=== PATIENT | female | born 1975 | race Caucasian/White ===

== ENCOUNTER 2017-11-01 20:20 | Inpatient (IN) | payer SELFPAY ==
[~2017-11-01] VITALS: Ht 170.2 cm; Wt 90.7 kg
[~2017-11-01 20:20] MED LIST: Z.1.HYDROCODON-ACE1
--- OUTSIDE RECORDS SUMMARY | 2017-11-01 20:23 | XMS REPORT ---
Author Author [facility] Address Unknown Phone Unavailable Care Team Providers Care Circulation Man Name Role Phone KAMLESH TORREZ Unavailable Unavailable Problems This patient has no known problems. Allergies, Adverse Reactions, Alerts This patient has no known allergies or adverse reactions. Medications This patient has no known medications. Encounters Start Date/Time End Date/Time Encounter Type Admission Type Attending [facility] Care Facility Care Department Encounter ID 2017-12-09 00:00:00 2017-12-09 00:00:00 Outpatient [facility] [id number] 2017-11-04 00:00:00 2017-11-04 00:00:00 Outpatient [facility] [id number] 2017-10-14 00:00:00 2017-10-14 00:00:00 Outpatient [facility] [id number] 2017-10-14 00:00:00 2017-10-14 00:00:00 Outpatient [facility] [id number] 2017-07-22 13:35:12 2017-07-22 13:35:12 Outpatient [facility] [id number] 2017-06-29 00:00:00 2017-06-29 00:00:00 Outpatient [facility] [id number] 2017-04-30 15:04:31 2017-04-30 15:04:31 Outpatient [facility] [id number] 2017-04-30 14:36:00 2017-04-30 14:36:00 Outpatient [facility] [id number] 2017-04-29 12:59:17 2017-04-29 12:59:17 Outpatient [facility] [id number] Results Test Description Test Time Test Comments Text Results Atomic Results Result Comments CHEST [address] [address] Patient Name: GLADYS DOUGLAS MR #: [id number] : 1975 Age/Sex: 41/F Req #: [id number] Adm Physician: Ordered by: KAMLESH TORREZ MD Report #: [id number] Location: Room/Bed: Procedure: [id number] DX/CHEST 2 VIEWS Exam Date: 05/02/17 Exam Time: 2318 REPORT STATUS: Signed EXAM: CHEST 2 VIEWS, PA and lateral DATE: 05/02/2017 10:42 PM Time stamp on exam: 2252 hours INDICATION: Abdominal pain , shortness of breath, chest pain COMPARISON: None FINDINGS: LINES/ TUBES: None LUNGS: No consolidations or edema. PLEURA: No effusions or pneumothorax. HEART AND MEDIASTINUM: Normal size and contour. BONES AND SOFT TISSUES: No acute findings. IMPRESSION: No acute thoracic abnormality. Signed by: Dr. Sam Seymour M.D. on 2016 11:33 PM Dictated By: SAM SEYMOUR MD 32 Transcribed By: MARYJO on 05/02/172332 COPY TO: KAMLESH TORREZ MD
[2017-11-01] MEDS ORDERED: DIATRIZOATE MEGL/DIATRIZOA SOD 30 ML BTL PO ONE (22:56)
[2017-11-01 23:08] LABS: BASOPHILS % 0.3 % (0.0-1.0); EOSINOPHILS # (AUTO) 0.1 (0.0-0.4); EOSINOPHILS % 0.8 % (0.0-6.0); HEMATOCRIT 28.7 % (34.2-44.1); HEMOGLOBIN 8.9 g/dL (12.0-16.0); LYMPHOCYTES # (AUTO) 1.8 (1.0-3.2); LYMPHOCYTES % 13.8 % (18.0-39.1); MEAN CORPUSCULAR HEMOGLOBIN 25.6 pg (28-32); MEAN CORPUSCULAR VOLUME 82.5 fL (81-99); MONOCYTES # (AUTO) 0.8 (0.2-0.8); MONOCYTES % 5.8 % (4.4-11.3); NEUTROPHILS # (AUTO) 10.1 (2.1-6.9); NEUTROPHILS % 78.3 % (38.7-80.0); PLATELET COUNT 400 x10e3/uL (140-360); RED BLOOD COUNT 3.48 x10e6/uL (3.6-5.1); RED CELL DISTRIBUTION WIDTH 15.6 % (11.7-14.4)
[2017-11-01 23:16] LABS: INR 1.76; PROTHROMBIN TIME 19.3 seconds (11.9-14.5)
[2017-11-01 23:17] LABS: PARTIAL THROMBOPLASTIN TIME 48.7 seconds (23.8-35.5)
[2017-11-01 23:26] LABS: ALANINE AMINOTRANSFERASE 8 IU/L (0-55); ALBUMIN 2.1 g/dL (3.5-5.0); ALBUMIN/GLOBULIN RATIO 0.3 (0.8-2.0); ALKALINE PHOSPHATASE 107 IU/L (40-150); AMYLASE 15 U/L (25-125); ANION GAP 13.6 mmol/L (8-16); BLOOD UREA NITROGEN < 5 mg/dL (7-26); CALCIUM 9.2 mg/dL (8.4-10.2); CARBON DIOXIDE 29 mmol/L (22-29); CHLORIDE 93 mmol/L (98-107); CREATINE KINASE 7 IU/L (29-168); CREATININE, SERUM 0.76 mg/dL (0.57-1.11); EST GLOMERULAR FILTRATION RATE > 60 ML/MIN (60-); GLUCOSE 170 mg/dL (74-118); POTASSIUM 3.6 mmol/L (3.5-5.1); SODIUM 132 mmol/L (136-145)
[2017-11-01 23:28] LABS: BUN/CREATININE RATIO 7 (6-25); LIPASE < 4 U/L (8-78)
--- NOTE | 2017-11-02 01:20 | Diagnostic Imaging Report ---
EXAM: CT ABDOMEN AND PELVIS with IV CONTRAST DATE: 11/01/2017 10:29 PM Time stamp on Exam: 0028 hours INDICATION: Abdominal pain, nausea, history of pancreatic pseudoaneurysm coiling COMPARISON: None TECHNIQUE: The abdomen and pelvis were scanned using a multidetector helical scanner. Coronal and sagittal reformations were obtained. Routine protocol performed. IV Contrast: 100 cc Isovue-370 Oral Contrast: Gastrografin CTDIvol has been reviewed. It is below the limits set by the Radiation Protocol Committee (RPC). FINDINGS: LOWER THORAX: No consolidations LIVER: Geographic hypodensities throughout the liver with more prominent irregular hypodensities in the posterior aspect of the right lobe of the liver. BILIARY: The gallbladder has been removed. The common bile duct is mildly prominent at 7 mm. SPLEEN: Splenomegaly up to 18 cm in craniocaudal dimension. There are a few subcentimeter ill-defined hypodensities in the superior anterior and mid posterior aspects. PANCREAS: Diffuse pancreatic atrophy. Scattered pancreatic calcifications and punctate focus of air in the pancreatic duct. ADRENALS: No nodules KIDNEYS: Symmetric perfusion. No enhancing masses. No hydronephrosis. GI TRACT: Thickened gastric wall anteriorly predominantly of the body and the antrum. The small bowel and large bowel are unremarkable. Normal appendix. VESSELS: The main portal and splenic veins are patent. Splenic varices. Coils in the expected location of the gastroduodenal artery. No evidence of an aneurysm. There is a replaced right hepatic artery arising from the superior mesenteric artery. The left hepatic artery is patent. PERITONEUM/RETROPERITONEUM: Within the anterior upper abdomen there is an approximately 8 cm ill-defined, multiloculated fluid collection with punctate foci of air which is invading the anterior wall of the body of the stomach and left lobe of the liver and abuts the anterior abdominal wall. Adjacent inflammatory changes of the overlying subcutaneous fat. Trace free pelvic fluid. LYMPH NODES: No lymphadenopathy REPRODUCTIVE ORGANS: Unremarkable BLADDER: Unremarkable SOFT TISSUES: Mild inflammation of the upper anterior abdomen subcutaneous tissues. Well-circumscribed nonspecific nodules in the partially visualized left breast measuring approximately 1.4 cm each. These could represent intramammary lymph nodes. Focal soft tissue densities in the lower anterior abdomen subcutaneous tissues likely represent injection sites. BONES: No suspicious bone lesions. IMPRESSION: Ill-defined multiloculated fluid collection measuring approximately 8 cm in the anterior upper abdomen containing air is consistent with an abscess with invasion to the anterior stomach wall and left lobe of the liver. Ill-defined hypodensities in the liver, predominantly right posterior lobe are suspicious for spread of infection with a background of geographic hepatic steatosis. Splenomegaly with nonspecific scattered subcentimeter hypodensities, that could be related to infection. Procedural changes of gastroduodenal artery coiling without evidence of aneurysm. Signed by: Dr. Reina Ferrera M.D. on 11/02/2017 1:16 AM
[2017-11-02] MEDS ORDERED: METHADONE PO (02:02)
[2017-11-02] MEDS ORDERED: XARELTO20 MG PO (02:06)
[2017-11-02] MEDS ORDERED: IMITREX25 MG PO (02:06)
[2017-11-02] MEDS ORDERED: ZOLOFT50 MG PO (02:06)
[2017-11-02] MEDS ORDERED: AMBIEN CR12.5 MG PO (02:06)
[2017-11-02] MEDS: PIPER-TAZ 3.375 GM/50 ML BAG IV SCH ×3 (03:04→21:37)
[2017-11-02] MEDS: SODIUM CHLORIDE 0.9% 1000ML 1,000 ML IV SCH ×3 (03:04→17:33)
[2017-11-02] MEDS: MORPHINE SULFATE 2 MG/ML SYR IV PRN ×4 (03:09→21:39)
[2017-11-02] MEDS: METRONIDAZOLE 500MG/NS 100ML IV SCH ×4 (03:45→23:30)
[2017-11-02] MEDS ORDERED: IOPAMIDOL 370 MG/ML 200 ML INFUS..BTL INJ ONE (04:41)
[2017-11-02] MEDS ORDERED: SODIUM CHLORIDE 0.9% 50ML 50 ML ONE (04:41)
[2017-11-02] MEDS: ONDANSETRON HCL INJ 2 MG/ML VIAL IV PRN ×2 (05:29→16:55)
[2017-11-02] MEDS ORDERED: ACETAMINOPHEN 1000 MG/100 ML IV SCH (06:00)
[2017-11-02] MEDS ORDERED: ACETAMINOPHEN 1000 MG/100 ML IV PRN (06:00)
--- NOTE | 2017-11-02 10:14 | Consultation ---
DATE OF CONSULTATION: November 02, 2017 CHIEF COMPLAINT: Abdominal pain. 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 Has developed increase abdominal pain, which exacerbated in the last 2 days to a severe degree with fevers and nausea. No vomiting. No diarrhea. PAST MEDICAL HISTORY: Positive for anxiety disorder. SURGICAL HISTORY: Significant for cholecystectomy and recent embolization to pseudoaneurysm of the pancreas. ALLERGIES: SHE HAS AN ALLERGIC REACTION TO REGLAN. SOCIAL HABITS: No smoking or alcohol abuse. REVIEW OF SYSTEMS: No chest pain, shortness of breath or cough. PHYSICAL EXAMINATION VITALS: Stable. Afebrile. T-max 100. GENERAL: The patient is awake, alert and in moderate discomfort. HEENT: Sclerae anicteric. NECK: Supple. LUNGS: Clear. HEART: Regular rate and rhythm. ABDOMEN: Soft. There is guarding, tenderness and rebound in the epigastric area. EXTREMITIES: Without cyanosis or edema. The patient's white blood cell count is 13, hemoglobin 8.9. Creatinine is 0.7. CT scan showed a large fluid collection in the anterior abdominal region adjacent to the stomach abutting the left lobe of the liver with pockets suggestive of abscess formation. ASSESSMENT: Intra-abdominal abscess. Patient is on blood thinners. PLAN: Consult interventional radiology for percutaneous drainage of the intra-abdominal abscess. Thank you for the consultation. Job#: [id number] [place]
[2017-11-02] MEDS ORDERED: MIDAZOLAM HCL 2 MG/2 ML VIAL ONE (14:28)
[2017-11-02] MEDS ORDERED: FENTANYL CITRATE/PF 100MCG/2 ML INJ ONE (14:29)
[2017-11-02 16:00] VITALS: BP 125/58
[2017-11-02 16:37] VITALS: BP 125/58
[2017-11-02 16:43] VITALS: BP 125/58
[2017-11-02] MEDS ORDERED: ZOLPIDEM TARTRATE PO PRN (18:15)
[2017-11-02] MEDS ORDERED: LEVOTHYROXINE75 MCG PO (18:15)
[2017-11-02 20:00] VITALS: BP 113/54
--- NOTE | 2017-11-02 20:28 | History and Physical ---
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 difficile colitis, history of gastritis. Patient came here with abdominal pain. She was found to have any intra-abdominal abscess. She already underwent drainage of the abscess by inpatient Radiology who drained 200 mL of pus from the abdomen. REVIEW OF SYSTEMS: CARDIOVASCULAR: No chest pain or palpitation. RESPIRATORY: No shortness of breath. No cough. GASTROINTESTINAL: No nausea. No vomiting. She did have abdominal pain which is better. GENITOURINARY: No frequency, no dysuria. ALLERGIES: IS ALLERGIC TO METOCLOPRAMIDE, PROCHLORPERAZINE. SOCIAL HISTORY: She does not drink. PAST MEDICAL HISTORY: Positive for recent pseudoaneurysm with intraluminal coiling of the gastroduodenal artery, history of recent pancreatitis also. PHYSICAL EXAMINATION VITAL SIGNS: Blood pressure 125/58, temperature 98.3. Heart rate 85 per minute. Respiratory rate 20 per minute. Oxygen saturation 99%. On the BMP sodium 132, potassium 3.6, chloride 93. CO2 29. BUN 5, creatinine 0.76. Glucose 170. On the CBC, white blood count 12.9, hemoglobin 8.9, hematocrit 28.7, platelet count 400,000. PT 19.3. INR 1.76. PTT 48.7. AST 18, ALT 8. Total bilirubin 0.4, alkaline phosphatase 107. FINAL IMPRESSION: 1. Intra-abdominal abscess status post drain. 2. Acute anemia. 3. Thrombus in the gastroduodenal artery. PLAN OF TREATMENT: As I said, we are going to continue with 1 Flagyl 500 mg IV q.6 hours. Zosyn 3.375 grams IV piggyback q.6 hours. Zofran 4 mg IV q.4 hours. Tylenol 1000 mg IV q.6 h. as needed. Morphine 4 mg IV q.4 h. as needed. Continue IV fluids at 125 mL an hour. And she was taking also Xarelto [address] Burks has been consulted from the surgical point of view and invasive Radiology has been consulted and Dr. Zuniga for infectious disease. He has been consulted. We are going to repeat a CBC and BMP. We are going to be waiting for abdominal fluid culture. Job#: [id number] [place]
[2017-11-02] MEDS: ZOLPIDEM TARTRATE 10 MG TAB PO PRN (23:10)
[2017-11-03] VITALS: BP 96/53
[2017-11-03] MEDS: SODIUM CHLORIDE 0.9% 1000ML 1,000 ML IV SCH ×4 (03:20→20:38)
[2017-11-03] MEDS: MORPHINE SULFATE 2 MG/ML SYR IV PRN ×5 (03:39→22:36)
[2017-11-03 04:00] VITALS: BP 99/52
[2017-11-03] MEDS: METRONIDAZOLE 500MG/NS 100ML IV SCH ×3 (05:13→17:11)
[2017-11-03] MEDS: PIPER-TAZ 3.375 GM/50 ML BAG IV SCH ×3 (06:30→22:21)
[2017-11-03 06:52] LABS: BASOPHILS % 0.5 % (0.0-1.0); EOSINOPHILS # (AUTO) 0.1 (0.0-0.4); HEMATOCRIT 23.8 % (34.2-44.1); LYMPHOCYTES # (AUTO) 1.2 (1.0-3.2); LYMPHOCYTES % 18.9 % (18.0-39.1); MEAN CORPUSCULAR HGB CONC 31.1 g/dL (31-35); MEAN CORPUSCULAR VOLUME 83.5 fL (81-99); MONOCYTES # (AUTO) 0.5 (0.2-0.8); MONOCYTES % 7.6 % (4.4-11.3); NEUTROPHILS # (AUTO) 4.5 (2.1-6.9); NEUTROPHILS % 69.5 % (38.7-80.0); PLATELET COUNT 248 x10e3/uL (140-360); RED BLOOD COUNT 2.85 x10e6/uL (3.6-5.1); RED CELL DISTRIBUTION WIDTH 15.5 % (11.7-14.4)
[2017-11-03 06:57] LABS: HEMOGLOBIN 7.4 g/dL (12.0-16.0)
[2017-11-03 07:18] LABS: ALBUMIN 1.6 g/dL (3.5-5.0); ALBUMIN/GLOBULIN RATIO 0.3 (0.8-2.0); ALKALINE PHOSPHATASE 98 IU/L (40-150); ANION GAP 10.2 mmol/L (8-16); BLOOD UREA NITROGEN < 5 mg/dL (7-26); CALCIUM 8.3 mg/dL (8.4-10.2); CARBON DIOXIDE 28 mmol/L (22-29); CHLORIDE 102 mmol/L (98-107); CREATININE, SERUM 0.62 mg/dL (0.57-1.11); EST GLOMERULAR FILTRATION RATE > 60 ML/MIN (60-); GLUCOSE 105 mg/dL (74-118); POTASSIUM 3.2 mmol/L (3.5-5.1); SODIUM 137 mmol/L (136-145)
[2017-11-03 07:19] LABS: ALANINE AMINOTRANSFERASE < 6 IU/L (0-55); BUN/CREATININE RATIO 8 (6-25)
[2017-11-03 07:35] VITALS: BP 113/73
[2017-11-03] MEDS: LEVOTHYROXINE SODIUM 75 MCG TAB PO SCH (08:51)
[2017-11-03] MEDS: SERTRALINE HCL 50 MG TAB PO SCH (08:51)
[2017-11-03] MEDS: ONDANSETRON HCL INJ 2 MG/ML VIAL IV PRN ×4 (08:51→22:37)
[2017-11-03] MEDS: RIVAROXABAN 15 MG TABLET PO SCH ×2 (08:51→16:35)
[2017-11-03] MEDS ORDERED: METHADONE PO SCH (09:00)
[2017-11-03] MEDS: METHADONE PO SCH (09:00)
[2017-11-03] MEDS ORDERED: RIVAROXABAN 20 MG TABLET PO SCH (09:00)
[2017-11-03] MEDS ORDERED: SODIUM CHLORIDE 0.9% 250ML 250 ML IV ONE (13:30)
[2017-11-03] MEDS ORDERED: POTASSIUM CHLORIDE 20 MEQ TAB CR PO STA (17:51)
--- NOTE | 2017-11-03 18:19 | Consultation ---
DATE OF CONSULTATION: REASON FOR CONSULTATION: Intra-abdominal abscess. HISTORY OF PRESENT ILLNESS: This is a 42-year-old white female with history of congenital pancreatic deformity with recurrent pancreatitis. The patient was recently at [facility] where apparently had pancreatitis and had pseudoaneurysm. She had coil placed in the aneurysm and then she had a deep venous thrombosis of her major vein. She was transferred to [facility] where she was treated with anticoagulation. She went home. She is coming now with swelling in her abdomen. The patient had a drain which is draining some pus, but she has no fever or chills. Infectious disease was consulted. REVIEW OF SYSTEMS: At present time all negative. LABORATORY DATA: Reviewed. When she first came, she had a white count 12.9 and now it is 6.4. Hemoglobin 7.4. Sodium 137. Potassium 3.2. Creatinine 0.62. Her abscess is growing gram-positive cocci. The patient had 8 cm inferior upper abdominal abscess with invasion into the anterior abdominal wall, which is drained now. She had gastrojejunal artery coiling without evidence of aneurysm, splenomegaly. The pancreas showed diffuse atrophy, scattered pancreatic calcification with punctate focus of air in the pancreatic duct. The vessels showed splenic varices, coil in the expected location of the gastrojejunal artery. IMPRESSION AND PLAN: Intra-abdominal wall abscess, which was drained. Gram-positive cocci. I think, depending on sensitivity, we can give her some oral antibiotic. Continue with drain. Discussed with the patient. Will follow. Job#: [id number]
--- NOTE | 2017-11-03 19:49 | Progress Note ---
DATE: November 03, 2017 INTERNAL MEDICINE PROGRESS NOTE SUBJECTIVE: A 42-year-old female who came here with abdominal pain. She was found to have abdominal abscess. She had abdominal abscess drained. We are waiting on the cultures to come back. PHYSICAL EXAM: VITAL SIGNS: Blood pressure 113/73. Temperature 98.6, heart rate 90 per minute. Respiratory rate is 20 per minute. Oxygen saturation 95%. HEART: Regular rhythm. No murmurs and no extra sounds. LUNGS: Clear bilaterally. ABDOMEN: Soft. She has a drain in place, draining pus. EXTREMITIES: Show no evidence cyanosis, edema or trauma. BMP showed sodium 137, potassium 3.2, chloride 102, CO2 28. BUN 5, creatinine 0.62. Glucose 105. CBC showed white blood count 6.46, hemoglobin 7.4, hematocrit 33.8, platelet count 248,000. PT 19.3, INR 1.76. PTT 48.7. AST 18, ALT 6, total bilirubin 0.3 and alkaline phosphatase 98. IMPRESSION: Intra-abdominal abscess, status post drain. History of recurrent deep venous thrombosis. Status post pancreatitis in the past. PLAN OF TREATMENT: Continue with current IV antibiotic therapy which includes metronidazole 500 mg IV q.6 hours. She is on sumatriptan 50 mg daily for migraine headaches. Zosyn 3.375 IV piggyback q.6 hours. Xarelto 50 mg twice a day. Levothyroxine 75 mcg daily. Zoloft 150 mg daily. Ambien 10 mg at night p.r.n. for sleep. She is also taking morphine 4 mg IV q.4 hour. Zofran 4 mg IV q.4 h. as needed. Both of them, morphine and Zofran as needed, of course. Patient was apparently taking methadone. At the bedside, we told the patient not to take that at all because she is on morphine. Job#: [id number]
[2017-11-03 20:00] VITALS: BP 113/73
[2017-11-03] MEDS: ZOLPIDEM TARTRATE 10 MG TAB PO PRN (20:38)
[2017-11-03 21:00] VITALS: BP 113/73
[2017-11-04] MEDS: MORPHINE SULFATE 2 MG/ML SYR IV PRN ×4 (03:00→15:40)
[2017-11-04] MEDS: ONDANSETRON HCL INJ 2 MG/ML VIAL IV PRN ×5 (03:00→23:00)
[2017-11-04] MEDS: PIPER-TAZ 3.375 GM/50 ML BAG IV SCH ×3 (05:10→23:30)
[2017-11-04] MEDS: METRONIDAZOLE 500MG/NS 100ML IV SCH ×4 (06:00→17:25)
[2017-11-04 06:50] LABS: BASOPHILS % 0.4 % (0.0-1.0); EOSINOPHILS # (AUTO) 0.2 (0.0-0.4); EOSINOPHILS % 3.6 % (0.0-6.0); LYMPHOCYTES # (AUTO) 1.4 (1.0-3.2); LYMPHOCYTES % 28.3 % (18.0-39.1); MEAN CORPUSCULAR HEMOGLOBIN 25.6 pg (28-32); MEAN CORPUSCULAR HGB CONC 30.8 g/dL (31-35); MEAN CORPUSCULAR VOLUME 83.2 fL (81-99); MONOCYTES # (AUTO) 0.4 (0.2-0.8); MONOCYTES % 7.1 % (4.4-11.3); PLATELET COUNT 269 x10e3/uL (140-360); RED BLOOD COUNT 2.73 x10e6/uL (3.6-5.1); RED CELL DISTRIBUTION WIDTH 15.7 % (11.7-14.4)
[2017-11-04 07:09] LABS: HEMATOCRIT 22.7 % (34.2-44.1)
[2017-11-04] MEDS: METHADONE PO SCH (07:25)
[2017-11-04] MEDS: LEVOTHYROXINE SODIUM 75 MCG TAB PO SCH (07:26)
[2017-11-04] MEDS: RIVAROXABAN 15 MG TABLET PO SCH ×2 (07:26→16:18)
[2017-11-04] MEDS: SERTRALINE HCL 50 MG TAB PO SCH (07:26)
[2017-11-04 07:27] LABS: BLOOD UREA NITROGEN < 5 mg/dL (7-26); CALCIUM 7.9 mg/dL (8.4-10.2); CARBON DIOXIDE 27 mmol/L (22-29); CHLORIDE 104 mmol/L (98-107); EST GLOMERULAR FILTRATION RATE > 60 ML/MIN (60-); GLUCOSE 103 mg/dL (74-118); SODIUM 138 mmol/L (136-145)
[2017-11-04 07:28] LABS: BUN/CREATININE RATIO 8 (6-25)
[2017-11-04 08:00] VITALS: BP 114/76
[2017-11-04] MEDS ORDERED: SODIUM CHLORIDE 0.9% 250ML 250 ML ONE ×2 (08:47→15:14)
[2017-11-04] MEDS: SODIUM CHLORIDE 0.9% 1000ML 1,000 ML IV SCH ×2 (10:26→23:08)
[2017-11-04 12:00] VITALS: BP 126/83
--- NOTE | 2017-11-04 12:27 | Diagnostic Imaging Report ---
PROCEDURE:LEAH SHANE FLUID/ABSC W/CATH-US COMPARISON:CT abdomen and pelvis 11/02/2017. INDICATIONS:Percutaneous Drainage of Abdominal Abscess FINDINGS:Ultrasonographic evaluation was performed at the bedside. A large heterogenous fluid collection is noted in the anterior abdomen. The fluid collection corresponded with the CT findings. A safe approach was determined. The mid abdominal epigastric region was prepped and draped in usual sterile fashion. 1% lidocaine was infused into the subcutaneous tissues for local anesthesia. Utilizing direct sonographic guidance, an 18 gauge needle was advanced into the fluid collection. A 0.035 inch wire was advanced into the fluid collection. Single dilation was performed over the wire. A 12 Arabic all-purpose drainage catheter was advanced over the wire. The wire was removed. The catheter tip was positioned within the fluid collection. 200 cc of purulent fluid were aspirated. The catheter was secured to the skin with 3-0 Ethilon suture. A sterile dressing was applied. The catheter was placed to gravity drainage. The patient tolerated the procedure well. There were no immediate complications. The patient was transferred to the post procedure area in stable unchanged condition for further monitoring. CONCLUSION:Successful placement of a percutaneous drainage catheter within an intra-abdominal fluid collection utilizing ultrasound guidance. Dictated by: Jim Martinez M.D. on 11/04/2017 at 12:27 Electronically approved by: Jim Martinez M.D. on 11/04/2017 at 12:27
[2017-11-04 16:00] VITALS: BP 138/83
[2017-11-04] MEDS ORDERED: ACETAMINOPHEN 325 MG TAB PO STA (17:48)
[2017-11-04] MEDS ORDERED: FAMOTIDINE 20 MG/2 ML VIAL IV ONE (18:00)
[2017-11-04] MEDS ORDERED: DIPHENHYDRAMINE HCL INJ 50 MG/ML VIAL IV ONE (18:00)
[2017-11-04] MEDS ORDERED: SODIUM CHLORIDE 0.9% 250ML 250 ML IV ONE (18:00)
[2017-11-04] MEDS ORDERED: POTASSIUM CHLORIDE 20 MEQ TAB CR PO STA (18:19)
[2017-11-04] MEDS ORDERED: MAGNESIUM SULFATE 2GM/50ML 100 ML IV ONE (19:00)
--- NOTE | 2017-11-04 19:22 | Progress Note ---
DATE: November 04, 2017 INTERNAL MEDICINE PROGRESS NOTE SUBJECTIVE: The patient is complaining of abdominal pain. She is getting blood transfusion because the hemoglobin is 7.0. PHYSICAL EXAM: VITAL SIGNS: Blood pressure 126/83. Temperature 97.3, heart rate 79 per minute. Respiratory rate 18 per minute. Oxygen saturation 93%. HEART: Regular rhythm. No murmur. No extra sounds. LUNGS: Clear bilaterally. ABDOMEN: Soft, slightly tender to palpation. She has a drain in the abdomen, which is draining pus, but a lot less in volume since yesterday. On the BMP sodium 138, potassium 3.0, chloride 104, CO2 27, BUN 5, creatinine 0.60, glucose 103. On the CBC white blood count 5.06, hemoglobin 7.0, hematocrit 22.7, platelet count 216,000. PT 19.3. INR 1.76. PTT 48.7. AST18, ALT 6, total bilirubin 0.3, alkaline phosphatase 98. FINAL IMPRESSION: 1. Intra-abdominal abscess with Streptococcus viridans. 2. Acute anemia. 3. Hypothyroidism. 4. Hypokalemia. 5. Chronic pain syndrome. PLAN OF TREATMENT: Going to get 2 units of blood transfusion. Continue morphine 4 mg IV q.4 h. as needed. Zofran 4 mg IV q.4 h. as needed. Metronidazole 500 mg IV q.6 hours. Sumatriptan 50 mg daily as needed for headaches. Zosyn 3.375 grams IV piggyback q.6 hours. She is on Xarelto 15 mg twice a day. She is on levothyroxine 75 mcg daily. Zofran 4 mg IV q.4 h. as needed. Sertraline 150 mg daily and Ambien 10 mg at night p.r.n. for sleep. Patient is going to get a PICC line because she has a very poor IV access. Job#: [id number]
--- NOTE | 2017-11-04 19:28 | Progress Note ---
DATE: November 04, 2017 INTERNAL MEDICINE PROGRESS NOTE ADDENDUM SUBJECTIVE: She had a hemoglobin of 7.0. There is no any clinical evidence of any GI bleed or blood in the urine or epistaxis or any other external source of bleeding. Going to order a CT of the abdomen and pelvis to rule out any retroperitoneal bleed. In the meantime, I am going to hold the Xarelto and consult Dr. Hazel, hematology/oncology, to help us in the workup for anemia and also gastroenterology, Dr. Noel Alford, will be consulted to rule out any type of gastrointestinal bleed. Two units of blood are going to be given today. We are going to repeat a CBC tomorrow. The patient was taking Xarelto also. Because of a DVT, we are going to hold the Xarelto obviously and we are going to consult Dr. Hazel, hematology/oncology, to see if we need to put in a [place] filter instead of using any anticoagulation because of the clear source of anemia and the concern for that bleeding. Job#: [id number]
--- NOTE | 2017-11-04 21:39 | Diagnostic Imaging Report ---
EXAM: CHEST XRAY LINE PLACEMENT, AP 1 view INDICATION: PICC placement COMPARISON: PA and lateral view of the chest May 02, 2017 FINDINGS: LINES/TUBES: Distal aspect of the right approach PICC terminates in expected location of the proximal superior vena cava. LUNGS: No consolidations or edema. PLEURA: No effusions or pneumothorax. HEART AND MEDIASTINUM: Normal size and contour. BONES AND SOFT TISSUES: No acute findings. IMPRESSION: Distal aspect of the right approach PICC terminates in expected location of the proximal superior vena cava. Signed by: Dr. Reina Ferrera M.D. on 11/04/2017 9:36 PM
--- NOTE | 2017-11-04 22:30 | Diagnostic Imaging Report ---
EXAM: CT ABDOMEN AND PELVIS with IV CONTRAST DATE: 11/04/2017 6:26 PM Time stamp on Exam: 2200 hours INDICATION: Fever, clinical concern for intraperitoneal bleed, drainage from abscess COMPARISON: CT of the abdomen and pelvis November 02, 2017 TECHNIQUE: The abdomen and pelvis were scanned using a multidetector helical scanner. Coronal and sagittal reformations were obtained. Routine protocol performed. IV Contrast: 100 cc Isovue-370 Oral Contrast: Water CTDIvol has been reviewed. It is below the limits set by the Radiation Protocol Committee (RPC). FINDINGS: LOWER THORAX: No consolidations LIVER: Persistent heterogeneity of the liver with more prominent ill-defined hypodensities along the posterior right lobe of the liver, similar to prior exam. Interval decrease in size of the abscess involvement involving the left lobe of the liver segment 3, with residual 2.5 cm fluid collection. BILIARY: Cholecystectomy. Stable mild prominence of the common bile duct. SPLEEN: Stable ill-defined hypodensities in the superior anterior and mid posterior aspects of the spleen. PANCREAS: Diffuse pancreatic atrophy. Foci of air in the pancreatic duct and scattered calcifications. ADRENALS: No nodules KIDNEYS: Symmetric perfusion. No enhancing masses. No hydronephrosis. GI TRACT: Stable thickening of the stomach wall predominantly anterior antrum. No bowel obstruction. Normal appendix. VESSELS: Coils in the expected location of the gastroduodenal artery without evidence of aneurysm. Splenic varices. Replaced right hepatic artery arising from the superior mesenteric artery. PERITONEUM/RETROPERITONEUM: Marked interval decrease in size of the multiloculated air-containing fluid collection in the anterior abdomen that abuts the anterior stomach and left lobe of the liver after the placement of a percutaneous pigtail drainage catheter. The abscess now measures approximately 5 cm with decreased fluid content, decreased from 8 cm. Small amount of low density free fluid in the pelvis, new from prior exam. LYMPH NODES: Several prominent luana hepatis lymph nodes. REPRODUCTIVE ORGANS: Unremarkable BLADDER: Unremarkable SOFT TISSUES: No interval change. BONES: No suspicious bone lesions. IMPRESSION: 1. No evidence of an intraperitoneal bleed. 2. Persistent but decreased size of the complex abscess in the anterior abdomen after the placement of a percutaneous pigtail drainage catheter. Persistent thickening of the gastric antrum and small residual abscess in the left lobe of the liver. 3. Persistent hypodensities in the spleen and the liver that could represent additional foci of infection. Signed by: Dr. Reina Ferrera M.D. on 11/04/2017 10:27 PM
[2017-11-04] MEDS ORDERED: SODIUM CHLORIDE 0.9% 50ML 50 ML ONE (23:07)
[2017-11-04] MEDS ORDERED: IOPAMIDOL 370 MG/ML 200 ML INFUS..BTL INJ ONE (23:08)
[2017-11-05] MEDS: METRONIDAZOLE 500MG/NS 100ML IV SCH ×4 (01:41→17:04)
[2017-11-05] MEDS: SODIUM CHLORIDE 0.9% 1000ML 1,000 ML IV SCH ×3 (02:15→17:04)
[2017-11-05] MEDS ORDERED: MORPHINE SULFATE 4 MG/ML SYR IV ONE (04:28)
[2017-11-05] MEDS ORDERED: MORPHINE SULFATE 2 MG/ML SYR ONE (04:35)
[2017-11-05] MEDS: ONDANSETRON HCL INJ 2 MG/ML VIAL IV PRN ×5 (04:41→20:19)
[2017-11-05] MEDS: PIPER-TAZ 3.375 GM/50 ML BAG IV SCH ×3 (06:46→22:08)
[2017-11-05 06:56] LABS: BASOPHILS % 0.5 % (0.0-1.0); EOSINOPHILS # (AUTO) 0.4 (0.0-0.4); EOSINOPHILS % 6.4 % (0.0-6.0); HEMATOCRIT 25.5 % (34.2-44.1); HEMOGLOBIN 8.1 g/dL (12.0-16.0); LYMPHOCYTES # (AUTO) 1.4 (1.0-3.2); LYMPHOCYTES % 26.3 % (18.0-39.1); MEAN CORPUSCULAR HEMOGLOBIN 26.1 pg (28-32); MEAN CORPUSCULAR HGB CONC 31.8 g/dL (31-35); MEAN CORPUSCULAR VOLUME 82.3 fL (81-99); MONOCYTES # (AUTO) 0.4 (0.2-0.8); MONOCYTES % 6.8 % (4.4-11.3); NEUTROPHILS # (AUTO) 3.2 (2.1-6.9); NEUTROPHILS % 58.4 % (38.7-80.0); PLATELET COUNT 203 x10e3/uL (140-360); RED CELL DISTRIBUTION WIDTH 15.4 % (11.7-14.4)
[2017-11-05] MEDS ORDERED: MORPHINE SULFATE 2 MG/ML SYR IV PRN (07:00)
[2017-11-05 07:34] LABS: FERRITIN 188.33 ng/mL (4.63-204.00)
[2017-11-05 08:00] VITALS: BP 138/83
[2017-11-05 08:22] VITALS: BP 127/67
[2017-11-05] MEDS: LEVOTHYROXINE SODIUM 75 MCG TAB PO SCH (09:00)
[2017-11-05] MEDS: SERTRALINE HCL 50 MG TAB PO SCH (09:00)
[2017-11-05] MEDS: METHADONE PO SCH (09:00)
[2017-11-05 11:35] VITALS: BP 136/78
[2017-11-05] MEDS: HYDROMORPHONE 1MG/1ML INJ IV PRN ×3 (12:08→20:22)
[2017-11-05] MEDS ORDERED: POTASSIUM CHLORIDE 20 MEQ TAB CR PO STA (15:43)
[2017-11-05] MEDS ORDERED: MAGNESIUM SULFATE 2GM/50ML 50 ML IV ONE (15:45)
[2017-11-05 15:56] VITALS: BP 150/80
--- NOTE | 2017-11-05 16:42 | Progress Note ---
DATE: INTERNAL MEDICINE PROGRESS NOTE SUBJECTIVE: A 42-year-old female. She is doing better. She came with an intraabdominal abscess. She is still complaining of abdominal pain and nausea. PHYSICAL EXAM: VITAL SIGNS: Blood pressure 136/78, temperature is 97.6, heart rate 82 per minute, respiratory rate 18 per minute. Oxygen saturation 94%. HEART: Shows regular rhythm. Normal S1 and S2 sounds. LUNGS: Clear bilaterally. ABDOMEN: Soft. She has some tenderness on the periumbilical area. She has a drain connected to a bag, which is draining lot of pus. BLOOD WORK: We have BMP with a sodium 138, potassium 3.0, chloride 104, CO2 27, BUN 5, creatinine 6.60, glucose 103. On the CBC: White blood count 5.47, hemoglobin 8.1, hematocrit 25.5, platelet count 203,000. PT 19.3, INR 1.76, PTT 48.7. AST 18, ALT 6, total bilirubin 0.3, alkaline phosphatase 98. FINAL IMPRESSION: 1. Intraabdominal abscess, status post drain placed around the abscess area. 2. Acute anemia. 3. Portal vein deep vein thrombosis. 4. Chronic pain syndrome. PLAN OF TREATMENT: Continue metronidazole 500 mg IV q.6 hours, Zosyn 3.375 g IV piggyback q.6 hours. We are holding the Xarelto because the patient has an episode of acute anemia. We are trying to rule out GI bleed. Also, there is no evidence of any portal vein thrombosis right now. I talked to Dr. Simons, hematology. He recommended to discontinue the Xarelto for now. We are going to continue levothyroxine 75 mcg daily. Zoloft 150 mg daily. Dilaudid 1 mg IV q.4 hours as needed. Imitrex 50 mg daily as needed for headache. Ambien 10 mg at night p.r.n. for sleep. We are trying to arrange the transfer to [facility] due to the complexity of the case as per recommendation of Dr. Simons also. Patient has multiple liver lesions, spleen lesions, and intraabdominal abscess. She has a history of portal vein thrombosis, anemia also. So, there is a lot of medical conditions going on. We think that she would benefit from the transfer to [facility]. Job#: [id number]
[2017-11-05 20:00] VITALS: BP 151/92
[2017-11-05] MEDS: SUMATRIPTAN SUCCINATE 25 MG TAB PO PRN (20:23)
[2017-11-05] MEDS: ZOLPIDEM TARTRATE 10 MG TAB PO PRN (20:23)
[2017-11-06] VITALS (10 sets, daily range): BP systolic 121–151; BP diastolic 75–97
[2017-11-06] MEDS: METRONIDAZOLE 500MG/NS 100ML IV SCH ×5 (00:05→23:50)
[2017-11-06] MEDS: ONDANSETRON HCL INJ 2 MG/ML VIAL IV PRN ×6 (00:33→21:15)
[2017-11-06] MEDS: HYDROMORPHONE 1MG/1ML INJ IV PRN ×6 (00:40→21:20)
[2017-11-06] MEDS: SODIUM CHLORIDE 0.9% 1000ML 1,000 ML IV SCH (02:35)
[2017-11-06] MEDS ORDERED: PANTOPRAZOLE 40 MG 10ML VIAL IV STA (03:57)
[2017-11-06] MEDS ORDERED: PANTOPRAZOL 40MG/SOD CHL 0.9% 250 ML IV SCH (04:00)
[2017-11-06] MEDS ORDERED: SODIUM CHLORIDE 0.9% 50ML 50 ML ONE (04:28)
[2017-11-06] MEDS ORDERED: PANTOPRAZOLE 40 MG 10ML VIAL ONE (04:32)
[2017-11-06] MEDS: LEVOTHYROXINE SODIUM 75 MCG TAB PO SCH (05:33)
[2017-11-06] MEDS: PIPER-TAZ 3.375 GM/50 ML BAG IV SCH ×3 (06:22→21:26)
[2017-11-06 06:49] LABS: BASOPHILS % 0.4 % (0.0-1.0); EOSINOPHILS # (AUTO) 0.3 (0.0-0.4); EOSINOPHILS % 6.3 % (0.0-6.0); HEMATOCRIT 28.3 % (34.2-44.1); HEMOGLOBIN 8.8 g/dL (12.0-16.0); LYMPHOCYTES # (AUTO) 1.7 (1.0-3.2); LYMPHOCYTES % 31.1 % (18.0-39.1); MEAN CORPUSCULAR HEMOGLOBIN 26.2 pg (28-32); MEAN CORPUSCULAR HGB CONC 31.1 g/dL (31-35); MEAN CORPUSCULAR VOLUME 84.2 fL (81-99); MONOCYTES # (AUTO) 0.3 (0.2-0.8); MONOCYTES % 6.3 % (4.4-11.3); PLATELET COUNT 230 x10e3/uL (140-360); RED BLOOD COUNT 3.36 x10e6/uL (3.6-5.1); RED CELL DISTRIBUTION WIDTH 15.6 % (11.7-14.4)
[2017-11-06 07:06] LABS: ANION GAP 9.5 mmol/L (8-16); BLOOD UREA NITROGEN < 5 mg/dL (7-26); BUN/CREATININE RATIO 8 (6-25); CALCIUM 8.1 mg/dL (8.4-10.2); CARBON DIOXIDE 28 mmol/L (22-29); CHLORIDE 102 mmol/L (98-107); CREATININE, SERUM 0.63 mg/dL (0.57-1.11); EST GLOMERULAR FILTRATION RATE > 60 ML/MIN (60-); GLUCOSE 119 mg/dL (74-118); POTASSIUM 3.5 mmol/L (3.5-5.1); SODIUM 136 mmol/L (136-145)
[2017-11-06] MEDS: IRON-VITAMIN-MINERAL CAPSULE PO SCH ×3 (09:00→17:00)
[2017-11-06] MEDS: CYANOCOBALAMIN INJ 1,000 MCG/ML VIAL IM SCH (09:00)
[2017-11-06] MEDS: SERTRALINE HCL 50 MG TAB PO SCH (09:00)
[2017-11-06] MEDS: PANTOPRAZOL 40MG/SOD CHL 0.9% 50 ML IV SCH ×3 (09:00→19:49)
[2017-11-06] MEDS: METHADONE PO SCH (09:00)
[2017-11-06] MEDS: ENOXAPARIN SOD INJ 40 MG/0.4 ML SYR SC SCH (17:00)
[2017-11-06] MEDS: SUMATRIPTAN SUCCINATE 25 MG TAB PO PRN (18:32)
[2017-11-06] MEDS: ZOLPIDEM TARTRATE 10 MG TAB PO PRN (21:27)
[2017-11-07] VITALS (7 sets, daily range): BP systolic 112–144; BP diastolic 69–91
[2017-11-07] MEDS: PANTOPRAZOL 40MG/SOD CHL 0.9% 50 ML IV SCH ×5 (00:04→20:12)
[2017-11-07] MEDS: ONDANSETRON HCL INJ 2 MG/ML VIAL IV PRN ×6 (01:32→22:20)
[2017-11-07] MEDS: HYDROMORPHONE 1MG/1ML INJ IV PRN ×6 (01:32→22:25)
[2017-11-07] MEDS: METRONIDAZOLE 500MG/NS 100ML IV SCH ×4 (05:00→23:33)
[2017-11-07] MEDS: LEVOTHYROXINE SODIUM 75 MCG TAB PO SCH (05:24)
[2017-11-07] MEDS: PIPER-TAZ 3.375 GM/50 ML BAG IV SCH ×3 (05:24→22:00)
[2017-11-07 07:38] LABS: BASOPHILS % 0.6 % (0.0-1.0); EOSINOPHILS # (AUTO) 0.3 (0.0-0.4); EOSINOPHILS % 5.2 % (0.0-6.0); HEMOGLOBIN 9.2 g/dL (12.0-16.0); LYMPHOCYTES % 39.3 % (18.0-39.1); MEAN CORPUSCULAR HEMOGLOBIN 26.6 pg (28-32); MEAN CORPUSCULAR HGB CONC 31.7 g/dL (31-35); MEAN CORPUSCULAR VOLUME 83.8 fL (81-99); MONOCYTES # (AUTO) 0.4 (0.2-0.8); NEUTROPHILS # (AUTO) 2.4 (2.1-6.9); NEUTROPHILS % 46.7 % (38.7-80.0); PLATELET COUNT 205 x10e3/uL (140-360); RED BLOOD COUNT 3.46 x10e6/uL (3.6-5.1); RED CELL DISTRIBUTION WIDTH 15.8 % (11.7-14.4)
[2017-11-07 07:54] LABS: ALBUMIN 1.7 g/dL (3.5-5.0); ALBUMIN/GLOBULIN RATIO 0.3 (0.8-2.0); ALKALINE PHOSPHATASE 156 IU/L (40-150); ANION GAP 9.4 mmol/L (8-16); BLOOD UREA NITROGEN 5 mg/dL (7-26); BUN/CREATININE RATIO 7 (6-25); CALCIUM 8.3 mg/dL (8.4-10.2); CARBON DIOXIDE 30 mmol/L (22-29); CHLORIDE 102 mmol/L (98-107); CREATININE, SERUM 0.71 mg/dL (0.57-1.11); EST GLOMERULAR FILTRATION RATE > 60 ML/MIN (60-); GLUCOSE 126 mg/dL (74-118); POTASSIUM 3.4 mmol/L (3.5-5.1); SODIUM 138 mmol/L (136-145)
[2017-11-07 08:00] LABS: ALANINE AMINOTRANSFERASE < 6 IU/L (0-55)
[2017-11-07] MEDS: SUCRALFATE 1 GM TAB PO SCH ×4 (08:00→21:40)
[2017-11-07 08:04] LABS: INR 1.23; PROTHROMBIN TIME 14.6 seconds (11.9-14.5)
[2017-11-07] MEDS: IRON-VITAMIN-MINERAL CAPSULE PO SCH ×2 (08:57→17:00)
[2017-11-07] MEDS: CYANOCOBALAMIN INJ 1,000 MCG/ML VIAL IM SCH (08:57)
[2017-11-07] MEDS: SERTRALINE HCL 50 MG TAB PO SCH (08:57)
[2017-11-07] MEDS: METHADONE PO SCH (08:57)
[2017-11-07] MEDS ORDERED: POTASSIUM CHLORIDE 10 MEQ TABCR PO ONE (11:00)
[2017-11-07] MEDS ORDERED: POTASSIUM CHLORIDE 20MEQ/100ML 100 ML IV ONE (11:00)
[2017-11-07] MEDS ORDERED: PROMETHAZINE 25MG/ NS 50ML (IV) IV PRN (12:30)
[2017-11-07] MEDS: ENOXAPARIN SOD INJ 40 MG/0.4 ML SYR SC SCH (17:10)
[2017-11-07] MEDS: SUMATRIPTAN SUCCINATE 25 MG TAB PO PRN (18:36)
[2017-11-07] MEDS: ZOLPIDEM TARTRATE 10 MG TAB PO PRN (20:20)
[2017-11-08 00:21] VITALS: BP 149/94
[2017-11-08] MEDS: PANTOPRAZOL 40MG/SOD CHL 0.9% 50 ML IV SCH ×5 (01:00→21:32)
[2017-11-08] MEDS: ONDANSETRON HCL INJ 2 MG/ML VIAL IV PRN ×4 (04:12→21:32)
[2017-11-08] MEDS: HYDROMORPHONE 1MG/1ML INJ IV PRN ×2 (04:15→08:25)
[2017-11-08] MEDS: METRONIDAZOLE 500MG/NS 100ML IV SCH ×3 (05:10→11:52)
[2017-11-08] MEDS: LEVOTHYROXINE SODIUM 75 MCG TAB PO SCH (05:10)
[2017-11-08] MEDS: PIPER-TAZ 3.375 GM/50 ML BAG IV SCH ×3 (05:21→21:13)
[2017-11-08 05:46] VITALS: BP 144/90
[2017-11-08 07:03] LABS: BASOPHILS % 0.5 % (0.0-1.0); EOSINOPHILS # (AUTO) 0.3 (0.0-0.4); EOSINOPHILS % 4.8 % (0.0-6.0); HEMATOCRIT 30.2 % (34.2-44.1); HEMOGLOBIN 9.5 g/dL (12.0-16.0); LYMPHOCYTES # (AUTO) 2.1 (1.0-3.2); LYMPHOCYTES % 34.3 % (18.0-39.1); MEAN CORPUSCULAR HEMOGLOBIN 26.3 pg (28-32); MEAN CORPUSCULAR HGB CONC 31.5 g/dL (31-35); MEAN CORPUSCULAR VOLUME 83.7 fL (81-99); MONOCYTES # (AUTO) 0.4 (0.2-0.8); MONOCYTES % 5.7 % (4.4-11.3); NEUTROPHILS # (AUTO) 3.3 (2.1-6.9); PLATELET COUNT 203 x10e3/uL (140-360); RED BLOOD COUNT 3.61 x10e6/uL (3.6-5.1)
[2017-11-08 07:05] LABS: ANION GAP 11.7 mmol/L (8-16); BLOOD UREA NITROGEN 5 mg/dL (7-26); BUN/CREATININE RATIO 7 (6-25); CALCIUM 8.7 mg/dL (8.4-10.2); CARBON DIOXIDE 30 mmol/L (22-29); CHLORIDE 101 mmol/L (98-107); CREATININE, SERUM 0.74 mg/dL (0.57-1.11); EST GLOMERULAR FILTRATION RATE > 60 ML/MIN (60-); GLUCOSE 96 mg/dL (74-118); POTASSIUM 3.7 mmol/L (3.5-5.1); SODIUM 139 mmol/L (136-145)
[2017-11-08 08:00] VITALS: BP 118/71
[2017-11-08] MEDS: SUCRALFATE 1 GM TAB PO SCH ×4 (08:11→21:13)
[2017-11-08] MEDS: IRON-VITAMIN-MINERAL CAPSULE PO SCH ×2 (08:33→16:01)
[2017-11-08] MEDS: CYANOCOBALAMIN INJ 1,000 MCG/ML VIAL IM SCH (08:33)
[2017-11-08] MEDS: METHADONE PO SCH (08:33)
[2017-11-08] MEDS: SERTRALINE HCL 50 MG TAB PO SCH (08:33)
[2017-11-08] MEDS: IRON SUCROSE 200 MG in SODIUM CHLORIDE 0.9% 100 ML 100 ML IV SCH (09:00)
--- NOTE | 2017-11-08 11:10 | Consultation ---
DATE OF CONSULTATION: November 04, 2017 CONSULTATION TO: Dr. Oliva Ms. Roblesor is a 42-year-old white female who has been referred to me for possible portal vein thrombosis. 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 The patient had coiling done at [facility]. History of pancreatitis. History of Clostridium difficile colitis. History of gastritis. Patient also complains that she had portal vein thrombosis. The patient then claims that she was transferred downtown for a day, and they did tell her, "You're high risk. We cannot do anything." Subsequently was discharged. The patient also claims that she was hospitalized at [facility] for 6 days. The reason is not clear. She cannot tell me why she was admitted to [facility]. The patient lands up with abdominal pain. Subsequently was found to have abscess. Subsequently referred to me for history of "recurrent deep vein thrombosis." History of migraines. History of hepatitis C. SOCIAL HISTORY: The patient claims she got hepatitis C not because of drug use but because of tattoos. FAMILY HISTORY: Noncontributory. ALLERGIES: REPORTED NONE. MEDICATIONS: At this time: 1. Venofer. 2. Protonix. 3. Potassium. 4. Carafate. 5. B12. 6. Lovenox. 7. Flagyl. 8. Hydromorphone. 9. Synthroid. 10. Ondansetron. 11. Xarelto. 12. Zoloft. 13. Imitrex. 14. Ambien. 15. Zosyn. REVIEW OF SYSTEMS HEENT: Normal. CARDIAC: Normal. RESPIRATORY: Normal. 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 However, the CAT scan of the abdomen did not reveal any portal vein thrombosis, which she claims she has. : Normal. MUSCULOSKELETAL: The patient has an abscess abdominal which is being drained by interventional radiology. PHYSICAL EXAMINATION GENERAL: Markedly obese female. No palpable adenopathy. HEART: Within normal limits. LUNGS: Clear. ABDOMEN: There is a catheter at the left lower abdominal quadrant. RECTAL AND VAGINAL: Exams deferred. CENTRAL NERVOUS SYSTEM: Essentially normal. EXTREMITIES: Essentially normal. LABORATORY DATA: Investigations of interest show a hemoglobin of 8.8, hematocrit 28.3. MCV low at 31.1. RDW high at 15.6. White count 5300. Platelets are reported at 230,000. Chemistry shows sodium 132, potassium 3.6, chloride 93, CO2 29, BUN 5, creatinine 0.76, glucose high at 170. Bilirubin 0.4, SGOT 18, SGPT 8, alkaline phosphatase 107. CK reported low at 7. Total protein is high at 9.8. Albumin low at 2.1. Globulins high at 7.7. Amylase 15. Lipase 4. CAT scan of the abdomen shows the patient to have an ill-defined, multiloculated fluid collection measuring 8 cm in the anterior upper abdomen containing air. Ill-defined hypodensities in the liver, predominantly right posterior lobe, suspicious for possible infection with background of geographic hepatic steatosis. Splenomegaly with nonspecific scattered subcentimeter hypodensities. Procedural changes of gastroduodenal artery coiling without evidence of aneurysm. This was read the by Dr. Reina Corral. She did not describe any portal vein thrombosis. The patient also had thickened gastric wall anteriorly. The main portal and splenic veins are patent. Splenic varices. Coil in the expected location of the gastroduodenal artery. No evidence of aneurysm. It is replaced by the hepatic artery arising from the superior mesenteric artery. The hepatic artery is patent. IMPRESSION 1. Abdominal abscess. 2. History of recurrent deep vein thrombosis. 3. History of migraines. 4. Intra-abdominal abscess drained by interventional radiology. 5. Iron deficiency anemia. 6. Hypomagnesemia. 7. Hypoalbuminemia. 8. Hyperglobulinemia. 9. Questionable liver abscesses. 10. Questionable splenic abscesses. 11. History of portal vein thrombosis. However, not identified by the CAT scan of 11/01/2017 at this institution. 12. History of hepatitis C. PLAN, COMMENTS AND SUGGESTIONS: Suggest aggressive IV antibiotics. Suggest INFeD. Suggest HIV. Suggest quantitation of immunoglobulins. Anticoagulate only if the records confirm the history she is giving us. She has been to 3 different hospitals. Unless all the records are obtained, I will not treat her. Quantitation of immunoglobulins was done. The IgG is high at 2391, IgA 237, IgM 202. She definitely needs to have a bone marrow. However, this is not an emergency. Since she has no insurance, she should be plugged into a system where the patient will have further assessment of the liver lesions, the spleen lesions, monoclonal gammopathy. After talking to the casework manager, [facility] was suggested. However, she could also obtain a Gold Card and go to [facility] and have them assessed since she will be seen by director of medical review-oncologist actually at [facility], which is run by MD Grimes. Thank you very much for allowing me to participate in the management of this patient during this hospitalization. However, because of lack of insurance, all of the above things cannot be done at this institution and, again, this is not a medical emergency. Some of the things which she says do not correlate with the CAT scan, which we have done, especially the portal vein thrombosis. I will be very hesitant to keep this young lady on any anticoagulants as I do not have any substantiating evidence as the records are not available. I have asked the staff to get the records. Job#: [id number] cc:MD JAGDISH CRESPO MD
[2017-11-08 12:00] VITALS: BP 131/80
--- NOTE | 2017-11-08 13:10 | Progress Note ---
DATE: INTERNAL MEDICINE PROGRESS NOTE SUBJECTIVE: Patient is still complaining of nausea and abdominal pain. The amount of draining in the bag has significantly decreased. We are going to do another CT of the abdomen tomorrow to see if there is any fluid left in the abdomen. Dr. Zuniga already wrote a prescription for ora Levaquin to be continued as an outpatient. PHYSICAL EXAM: VITAL SIGNS: Blood pressure 119/71. Temperature 97.4. Heart rate is 86 per minute. Respiratory rate is 18 per minute. Oxygen saturation 91%. HEART: Shows regular rhythm, normal S1 and S2 sounds. LUNGS: Clear bilaterally. ABDOMEN: Soft. She has a drain coming from the abdomen with a very small amount of fluid in the bag. On the BMP: Sodium 139, potassium 3.7, chloride 101, CO2 30, BUN 5, creatinine 0.74, glucose 96. On the CBC: White blood count 6.09, hemoglobin 9.5, hematocrit 30.2, platelet count 203,000. PT 14.6, INR 1.23, PTT 48.7. AST 12, ALT 6, total bilirubin 0.3, alkaline phosphatase 156. FINAL IMPRESSION: 1. Intraabdominal abscess. 2. Chronic pain syndrome. 3. History of portal vein thrombosis. 4. Anemia of chronic disease with guaiac positive stools. 5. History of hepatitis C. PLAN OF TREATMENT: Continue Protonix 40 mg daily. Continue iron. Continue metronidazole 500 mg IV q.6 h. Continue Zosyn 3.375 grams IV piggyback q.6 h. Continue Zoloft 150 mg daily. Levothyroxine 75 mcg daily. Lovenox 40 mg subcutaneously daily. Sumatriptan 50 mg daily. Zofran 4 mg q.4 h. as needed. Carafate 1 gram before meals and at bedtime. We are going to continue holding the Xarelto, number 1, because she has got guaiac positive stools, then she also had severe anemia requiring blood transfusion, and then the CAT scans failed to show any evidence of portal vein thrombosis. Continue Ambien 10 mg at night p.r.n. for sleep. Vitamin B12, 1000 mcg daily. Job#: [id number] EV
[2017-11-08] MEDS ORDERED: DIATRIZOATE MEGL/DIATRIZOA SOD 30 ML BTL PO ONE (13:35)
[2017-11-08 16:00] VITALS: BP 138/88
[2017-11-08] MEDS ORDERED: METRONIDAZOLE 500MG/NS 100ML 100 ML IV SCH (16:00)
[2017-11-08] MEDS: ENOXAPARIN SOD INJ 40 MG/0.4 ML SYR SC SCH (16:39)
[2017-11-08] MEDS: SUMATRIPTAN SUCCINATE 25 MG TAB PO PRN (17:24)
[2017-11-08] MEDS: HYDROCODONE/APAP 5MG-325MG TAB PO PRN ×2 (17:35→21:38)
[2017-11-08] MEDS: PROMETHAZINE 12.5MG/ NACL 0.9% 12.5 MG/50 ML BAG IV PRN (17:35)
[2017-11-08] MEDS: METRONIDAZOLE 500MG/NS 100ML 100 ML IV SCH (18:00)
--- NOTE | 2017-11-08 18:34 | Diagnostic Imaging Report ---
PROCEDURE: CT ABDOMEN AND PELVIS WITH CONTRAST TECHNIQUE: The abdomen and pelvis were scanned utilizing a multidetector helical scanner from the diaphragm to the lesser trochanter after the IV administration of 100cc of Isovue 370 and the oral administration of Gastroview. Coronal and sagittal multiplanar reformations were obtained. Total DLP: 587.99 mGy-cm COMPARISON: CT abdomen and pelvis 11/04/2017. INDICATIONS: ABD ABSCESS FINDINGS: LOWER THORAX: Normal. HEPATOBILIARY: Persistent heterogeneity of liver with more ill-defined hypodensities in the peripheral right hepatic lobe especially posteriorly as well as areas of hyperenhancement along the periphery, consistent with perfusional abnormalities. Right portal vein is upper fuse. Continue decrease size of epigastric abscess measuring 1.1 x 1.9 cm (series 2 image 28) with a drain in place. This abuts and likely involves a segment 3 of the liver. Previously this measured 2.5 cm. No biliary ductal dilatation. GALLBLADDER/BILIARY: Gallbladder surgically absent. Stable mild prominence of the common bile duct. SPLEEN: Severe splenomegaly measuring 19.2 cm in craniocaudal dimension. Stable linear subtle wedge-shaped hypodensities in the spleen consistent with resolving infarcts. Punctate calcified granulomas. PANCREAS: Persistent severe pancreatic atrophy. Surgical clips near the neck of the pancreas. Persistent mild prominence of the pancreatic duct at the neck and proximal body measuring 0.27 cm with persistent air. Scattered punctate calcifications are unchanged. ADRENALS: No adrenal nodules. KIDNEYS/URETERS: No hydronephrosis, stones, or solid mass lesions. PELVIC ORGANS/BLADDER: Unremarkable. PERITONEUM / RETROPERITONEUM: Continued decreased size of multiloculated air-containing fluid collection in the anterior epigastric abdomen abutting the anterior aspect of the stomach and the left hepatic lobe with a percutaneous catheter in place. Previously this was previously measurable area; now these are random few scattered foci of gas which is decreased compared to prior exam. LYMPH NODES: No lymphadenopathy. VESSELS: Coils at the expected location of the gastroduodenal artery. Splenic varices. Replaced right hepatic artery arising from the superior mesenteric artery. Right portal vein is not visualized. GI TRACT: Increasing gastric mucosal thickening. No distention or wall thickening in the small bowel and colon. BONES AND SOFT TISSUES: Unremarkable. IMPRESSION: 1. Increasing gastric mucosal thickening. 2. Decreasing epigastric air-containing abscess with a drain in place. Decreasing 1.1 x 1.9 cm segment 3 liver abscess which is continuous with the previously mentioned abscess. 3. Persistent hypodensities in the liver with a background setting of perfusional abnormality. This may represent infection. However, this may also be related to vascular disruption with nonopacified right portal vein. 4. Resolving splenic infarcts. Dictated by: Nick Wiley M.D. on 11/08/2017 at 18:34 Electronically approved by: Nick Wiley M.D. on 11/08/2017 at 18:34
[2017-11-08 20:00] VITALS: BP 146/79
[2017-11-08] MEDS ORDERED: IOPAMIDOL 370 MG/ML 200 ML INFUS..BTL INJ ONE (20:29)
[2017-11-08] MEDS ORDERED: SODIUM CHLORIDE 0.9% 50ML 50 ML ONE (20:29)
[2017-11-08] MEDS: ZOLPIDEM TARTRATE 10 MG TAB PO PRN (21:32)
[2017-11-09] VITALS: BP 120/62
[2017-11-09] MEDS: METRONIDAZOLE 500MG/NS 100ML 100 ML IV SCH ×4 (00:16→16:30)
[2017-11-09] MEDS: PANTOPRAZOL 40MG/SOD CHL 0.9% 50 ML IV SCH ×4 (02:36→20:12)
[2017-11-09] MEDS: PROMETHAZINE 12.5MG/ NACL 0.9% 12.5 MG/50 ML BAG IV PRN ×3 (03:00→18:04)
[2017-11-09] MEDS: HYDROCODONE/APAP 5MG-325MG TAB PO PRN ×4 (03:00→18:04)
[2017-11-09 04:00] VITALS: BP 128/68
[2017-11-09] MEDS: LEVOTHYROXINE SODIUM 75 MCG TAB PO SCH (05:34)
[2017-11-09 08:00] VITALS: BP 134/74
[2017-11-09] MEDS: SERTRALINE HCL 50 MG TAB PO SCH (08:46)
[2017-11-09] MEDS: SUCRALFATE 1 GM TAB PO SCH ×4 (08:46→20:12)
[2017-11-09] MEDS: RIVAROXABAN 15 MG TABLET PO SCH ×2 (08:46→16:09)
[2017-11-09] MEDS: IRON-VITAMIN-MINERAL CAPSULE PO SCH ×2 (08:46→16:09)
[2017-11-09] MEDS: CYANOCOBALAMIN INJ 1,000 MCG/ML VIAL IM SCH (08:46)
[2017-11-09] MEDS: METHADONE PO SCH (09:00)
[2017-11-09] MEDS: IRON SUCROSE 200 MG in SODIUM CHLORIDE 0.9% 100 ML 100 ML IV SCH (11:00)
[2017-11-09 12:00] VITALS: BP 121/54
--- NOTE | 2017-11-09 12:57 | Progress Note ---
DATE: INTERNAL MEDICINE PROGRESS NOTE SUBJECTIVE: She is doing well except for mild abdominal pain. The drain bag still has some evidence of some fluid collection but a lot less than before. The CT of the abdomen showed significant improvement in the amount of the abscess on the abdomen than she had before. PHYSICAL EXAM: HEART: Shows regular rhythm. Normal S1 and S2 sounds. LUNGS: Clear bilaterally. ABDOMEN: Soft. She has a drain tube in place. VITAL SIGNS: Show blood pressure 134/74, temperature 97.1, heart rate 89 per minute, respiratory rate is 19 per minute, oxygen saturation 95%. BLOOD WORK: The BMP showed sodium 139, potassium 3.7, chloride 101, CO2 30, BUN 5, creatinine 0.74. Glucose 96. On the CBC: White blood count 6.09, hemoglobin 9.5, hematocrit 30.2, platelet count 203,000. PT 14.6, PTT 48.7, INR 1.23. AST 12, ALT 6, total bilirubin 0.3, alkaline phosphatase 156. FINAL IMPRESSION: 1. Intraabdominal abscess. 2. Chronic pain syndrome. 3. History of portal vein thrombosis. 4. Anemia of chronic disease along with guaiac-positive stools in a patient that has also a history of recent gastric ulcer. 5. History of hepatitis C. PLAN OF TREATMENT: Continue metronidazole 500 mg IV q.6. Zosyn 3.375 grams IV piggyback q.6. Protonix 40 mg daily. Zoloft 150 mg daily. Levothyroxine 75 mcg daily. Lovenox 40 mg subcutaneous daily. Sumatriptan 50 mg daily. Zofran 4 mg q.4 h. as needed. Carafate 1 gram before meals and at bedtime. We are going to continue holding the Xarelto because she had guaiac-positive stools. She also had anemia requiring blood transfusion. CAT scan of the abdomen showed no evidence of any portal vein thrombosis, also. I have discussed the case with the nurse, employment case manager. Patient is going home once the drain bag drains no more fluid and once there is a significant improvement on the intraabdominal abscess. Job#: [id number] EV
[2017-11-09 16:00] VITALS: BP 126/83
[2017-11-09] MEDS: ENOXAPARIN SOD INJ 40 MG/0.4 ML SYR SC SCH (16:30)
[2017-11-10] MEDS: PANTOPRAZOL 40MG/SOD CHL 0.9% 50 ML IV SCH ×5 (00:20→20:46)
[2017-11-10] MEDS: METRONIDAZOLE 500MG/NS 100ML 100 ML IV SCH ×4 (00:44→17:09)
[2017-11-10] MEDS: HYDROCODONE/APAP 5MG-325MG TAB PO PRN ×5 (00:45→23:16)
[2017-11-10] MEDS: ZOLPIDEM TARTRATE 10 MG TAB PO PRN ×2 (01:17→23:16)
[2017-11-10] MEDS: LEVOTHYROXINE SODIUM 75 MCG TAB PO SCH (05:36)
[2017-11-10] MEDS: PROMETHAZINE 12.5MG/ NACL 0.9% 12.5 MG/50 ML BAG IV PRN ×3 (05:43→18:09)
[2017-11-10 07:53] VITALS: BP 117/75
[2017-11-10] MEDS: IRON-VITAMIN-MINERAL CAPSULE PO SCH ×2 (09:00→15:42)
[2017-11-10] MEDS: RIVAROXABAN 15 MG TABLET PO SCH ×2 (09:00→15:42)
[2017-11-10] MEDS: METHADONE PO SCH (09:00)
[2017-11-10 10:23] VITALS: BP 117/75
[2017-11-10] MEDS: CYANOCOBALAMIN INJ 1,000 MCG/ML VIAL IM SCH (10:29)
[2017-11-10] MEDS: SUCRALFATE 1 GM TAB PO SCH ×4 (10:29→20:46)
[2017-11-10] MEDS: SERTRALINE HCL 50 MG TAB PO SCH (10:30)
[2017-11-10] MEDS: IRON SUCROSE 200 MG in SODIUM CHLORIDE 0.9% 100 ML 100 ML IV SCH (10:30)
[2017-11-10 11:38] VITALS: BP 125/75
--- NOTE | 2017-11-10 12:12 | Progress Note ---
DATE: INTERNAL MEDICINE PROGRESS NOTE SUBJECTIVE: She is doing better. PHYSICAL EXAMINATION VITAL SIGNS: Blood pressure 126/83. Temperature 97.2, heart rate 94 per minute, respiratory rate 19 per minute, oxygen saturation 94%. HEART: Regular rhythm. Normal S1, S2 sounds. LUNGS: Clear bilateral. ABDOMEN: Soft. There is a drain in place. FINAL IMPRESSION 1. Recurrent intra-abdominal abscess. 2. Anemia. 3. History of peptic ulcer disease. 4. 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 5. History of pancreatitis in the past. 6. History of hepatitis C. 7. History of chronic pain. 8. 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 PLAN OF TREATMENT: Continue Protonix. Continue metronidazole. Continue levothyroxine, Lovenox, Ambien, sumatriptan, Carafate. She is on Xarelto 15 mg twice a day. She is on promethazine and [place] as needed. Once the amount of fluid in the drain is significantly decreased over 24 hours, we might be able to remove it, and then the patient might be able to go home. Job#: [id number]
[2017-11-10 16:02] VITALS: BP 117/79
[2017-11-10] MEDS: ENOXAPARIN SOD INJ 40 MG/0.4 ML SYR SC SCH (17:00)
[2017-11-10 20:13] VITALS: BP 132/82
[2017-11-10 21:01] VITALS: BP 132/82
[2017-11-11] VITALS (7 sets, daily range): BP systolic 136–152; BP diastolic 81–93
[2017-11-11] MEDS: PROMETHAZINE 12.5MG/ NACL 0.9% 12.5 MG/50 ML BAG IV PRN ×3 (00:23→19:10)
[2017-11-11] MEDS: METRONIDAZOLE 500MG/NS 100ML 100 ML IV SCH ×4 (00:30→17:27)
[2017-11-11] MEDS: PANTOPRAZOL 40MG/SOD CHL 0.9% 50 ML IV SCH ×5 (02:02→21:49)
[2017-11-11] MEDS: LEVOTHYROXINE SODIUM 75 MCG TAB PO SCH (06:27)
[2017-11-11] MEDS: HYDROCODONE/APAP 5MG-325MG TAB PO PRN ×5 (06:27→21:37)
[2017-11-11] MEDS: SUCRALFATE 1 GM TAB PO SCH ×4 (08:06→20:44)
[2017-11-11] MEDS: CYANOCOBALAMIN INJ 1,000 MCG/ML VIAL IM SCH (08:06)
[2017-11-11] MEDS: RIVAROXABAN 15 MG TABLET PO SCH ×2 (08:07→15:37)
[2017-11-11] MEDS: METHADONE PO SCH (08:07)
[2017-11-11] MEDS: IRON-VITAMIN-MINERAL CAPSULE PO SCH ×2 (08:07→15:37)
[2017-11-11] MEDS: SERTRALINE HCL 50 MG TAB PO SCH (08:07)
[2017-11-11] MEDS: IRON SUCROSE 200 MG in SODIUM CHLORIDE 0.9% 100 ML 100 ML IV SCH (09:29)
[2017-11-11] MEDS: ENOXAPARIN SOD INJ 40 MG/0.4 ML SYR SC SCH (16:47)
--- NOTE | 2017-11-11 17:45 | Progress Note ---
DATE: November 11, 2017 INTERNAL MEDICINE PROGRESS NOTE SUBJECTIVE: She is not in any distress. She still has some abdominal pain. The amount of fluid in the drain coming from the abdomen is less and less every day. Dr. Burks, surgeon, saw the patient today. He recommended a CAT scan of the abdomen tomorrow to compare with the prior one, and hopefully eventually we can remove the abdominal drain catheter. PHYSICAL EXAM: VITAL SIGNS: Blood pressure 143/92. Temperature 97.8, heart rate 92 per minute. Respiratory rate 19 per minute. Oxygen saturation 95%. HEART: Regular rhythm. No murmur. No extra sounds. LUNGS: Clear bilaterally. ABDOMEN: Soft. Nondistended, nontender and no visceromegaly. The drain tube from the abdomen is draining very little amount of fluid. BLOOD WORK: We have BMP sodium 139, potassium 3.7, chloride 101, CO2 30, BUN 5, creatinine 0.74. Glucose 96. CBC: White blood count 6.09, hemoglobin 9.5, hematocrit 30.2, platelet count 203,000. PT 14.6, PTT 48.7. INR 1.23. AST 12, ALT 6. Total bilirubin 0.3. Alkaline phosphatase 156. FINAL IMPRESSION: 1. Intra-abdominal abscess, which is slowly resolving. 2. Chronic pain syndrome. 3. History of pancreatitis. 4. 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 5. Anemia of chronic disease with guaiac positive stools. PLAN OF TREATMENT: Continue metronidazole 500 mg IV piggyback q.6 hours. Protonix 40 mg daily. Sertraline 150 mg daily. Levothyroxine 75 mcg daily. Lovenox 40 mg subcutaneously daily. Sumatriptan 50 mg daily as needed. Zofran 4 mg q.4 h. as needed. Carafate 1 gram before meals and at bedtime. Xarelto has been placed on hold. Continue vitamin B12 1000 mcg p.o. daily. Promethazine 12 5 mg IV q.4 h. as needed for pain. Multivitamin 1 tablet daily. Ambien 10 mg at night p.r.n. for sleep. Also, we got prior records from [facility]. The spots that she has in the liver and in the spleen are most likely ischemic in nature, according to the prior impression from the electrolysis engineer over there at [facility]. Hopefully once the abscess is completely resolved, we can remove the drain tube and the patient can go home with oral antibiotic, which has been prescribed by Dr. Zuniga, which is Levaquin 750 mg daily. Job#: [id number] GH
[2017-11-11] MEDS: ZOLPIDEM TARTRATE 10 MG TAB PO PRN (20:44)
[2017-11-12] VITALS (8 sets, daily range): BP systolic 135–156; BP diastolic 77–96
[2017-11-12] MEDS: METRONIDAZOLE 500MG/NS 100ML 100 ML IV SCH ×5 (00:15→23:29)
--- NOTE | 2017-11-12 00:40 | Consultation ---
DATE OF ADDENDUM: November 11, 2017 ADDENDUM TO CONSULTATION I reviewed the records which I had asked for from [facility]. The patient was hospitalized by Dr. Franklyn Oakley. This is a report dated 10/07/2017. The patient was seen by this physician for complicated acute and chronic pancreatitis at [facility]. As per this physician, her stay was complicated by severe abdominal pain, pancreatic pseudocyst, pancreaticoduodenal aneurysm. Interventional radiology embolization, portal vein and centric vein thrombosis along with upper GI bleed from the gastric ulcer and duodenitis. There was concern of worsening thrombosis and intolerance to anticoagulation. Therefore, she was transferred to [facility] for evaluation for possible thrombectomy. She was not deemed an acceptable candidate by IR and recommendations were to continue the medical management with thrombectomy. Therefore, she was transferred back to [facility]. The next records which were reviewed also reveals [facility] note on 10/08/2017 where she had a PICC line placement and a sphincterotomy. Review of these records also revealed that the patient's hemoglobin had dropped as low at 8.1 on 10/06/2017. The patient also had a surgeon, Dr. Maldonado. On 10/12 his records are that the patient had laparoscopic cholecystectomy, endoscopic sphincterotomy. The patient also had an MRI of the abdomen dated 10/14/2017. The comparison was made to a CAT scan of the abdomen dated 09/30/2017. The patient was found to have complex multiloculated rim enhancing and centrally necrotic lesion in the posterior segment of the right hepatic lobe measuring 3.1 x 4.4 x 4.8 cm, possibly compatible with an infarct. Several scattered similar but much smaller right hepatic lobe infarcts were noted with the largest measuring 1 x 1.6 x 1.3 cm. Single small poorly defined infarcts within the caudate lobe of the liver was 1 cm. There was a single prominent infarct within the lateral segment of the left hepatic lobe measuring 6.1 x 2.3 x 2.5 cm. There was a relatively small infarct within the spleen measuring 2.8 x 2.1 x 0.5 cm. The next reports are dated 10/13/2017 when the patient had needle aspiration of the liver abscess by a Dr. Mike Hernandez. This doctor describes approximately 5 mL of purulent fluid was aspirated which was sent for cultures. A date of discharge of 10/19/2017 when the final diagnoses were (1) [id number] pancreatitis (2)necrotizing pancreatitis (3) pancreatic divisum (4) portal vein thrombosis (5) pancreaticoduodenal aneurysm (6) hepatic ischemia (7)hepatic abscesses (8) Klebsiella pneumonia, hepatic abscesses (9) Klebsiella pneumonia peritonitis. The patient was instructed to follow up at [facility] to obtain further anticoagulation. Coupons were also given. The patient had verbalized understanding of GI services, hematology and pain management. The patient was discharged. The clinical findings at this time are about the same. The lesions by CAT scan here, even though possibility of lymphoma was raised, because she has a monoclonal gammopathy, these are probably still consistent with the abscesses because this was confirmed by the biopsy and aspirate. I do not see her as a medical emergency. I have spoken to her at length yesterday that she needs to be at an institution where she will be taken care of, life time, for the multiple problems which she has. I told her that this could only be achieved if she gets a Gold Card, goes to [facility]. She claims that she has the Gold Card, and as I dictated in detail she has never gone to [facility]. She hunts for different institutions. Thank you very much for allowing me to participate in the management of this patient. This patient needs to be served and observed and treated at an institution where she will be taken care of life time since she has no insurance. Job#: [id number] cc:VALENTIN ROSAS MD cc:JAGDISH CARDENAS MD cc:ALENA HART MD cc:ELAINE BAUER MD
[2017-11-12] MEDS: PROMETHAZINE 12.5MG/ NACL 0.9% 12.5 MG/50 ML BAG IV PRN ×4 (01:15→20:38)
[2017-11-12] MEDS: HYDROCODONE/APAP 5MG-325MG TAB PO PRN ×5 (01:40→23:29)
[2017-11-12] MEDS: PANTOPRAZOL 40MG/SOD CHL 0.9% 50 ML IV SCH ×5 (03:20→20:38)
[2017-11-12] MEDS: LEVOTHYROXINE SODIUM 75 MCG TAB PO SCH (05:41)
[2017-11-12 07:38] LABS: ANION GAP 9.6 mmol/L (8-16); BLOOD UREA NITROGEN 8 mg/dL (7-26); BUN/CREATININE RATIO 13 (6-25); CALCIUM 8.6 mg/dL (8.4-10.2); CARBON DIOXIDE 27 mmol/L (22-29); CHLORIDE 105 mmol/L (98-107); CREATININE, SERUM 0.64 mg/dL (0.57-1.11); EST GLOMERULAR FILTRATION RATE > 60 ML/MIN (60-); GLUCOSE 101 mg/dL (74-118); POTASSIUM 3.6 mmol/L (3.5-5.1); SODIUM 138 mmol/L (136-145)
--- NOTE | 2017-11-12 08:49 | Diagnostic Imaging Report ---
PROCEDURE: CT ABDOMEN AND PELVIS WITH CONTRAST TECHNIQUE: The abdomen and pelvis were scanned utilizing a multidetector helical scanner from the diaphragm to the lesser trochanter after the IV administration of 100 cc of Isovue 370 and the oral administration of water. Coronal and sagittal multiplanar reformations were obtained. COMPARISON: CT abdomen and pelvis 11/08/2017. INDICATIONS: INTRA ABDOMINAL ABSCESS FINDINGS: LOWER THORAX: Normal. HEPATOBILIARY: Stable hypodensity in the right lobe of the liver, series 2 image 17. Interval resolution of the perfusion changes in the right and left lobes of the liver. Stable 1.4 cm hypodensity in the medial aspect of the left lobe of the liver, series 2 image 26. No biliary ductal dilatation. SPLEEN: No splenomegaly. PANCREAS: No focal masses or ductal dilatation. ADRENALS: No adrenal nodules. KIDNEYS/URETERS: No hydronephrosis, stones, or solid mass lesions. PELVIC ORGANS/BLADDER: Normal uterus and ovaries. Normal urinary bladder. PERITONEUM / RETROPERITONEUM: Drainage catheter in unchanged and stable position within the anterior peritoneum, adjacent to the left lobe of the liver. No focal drainable fluid collection is visualized in the peritoneum, with resolution of the abscess anterior to the stomach. Minimal inflammatory changes remain. Trace free fluid is present in the pelvis. No free air or fluid. LYMPH NODES: No lymphadenopathy. VESSELS: Metallic coils are present in the region of the pancreatic head. GI TRACT: No distention or wall thickening. Moderate amount of retained feces limits intraluminal evaluation of the colon. Normal appendix. BONES AND SOFT TISSUES: Unremarkable. Stable densities in the left breast. Correlate with mammography. IMPRESSION: 1. Drainage catheter in the anterior abdominal peritoneum with resolution of the abscess. Minimal inflammatory changes remain. 2. Small hypodensity in the left lobe of the liver may represent a small parenchymal abscess. 3. Indeterminate hypodensity in the right lobe of the liver. Attention on followup is recommended. Dictated by: Jim Martinez M.D. on 11/12/2017 at 8:49 Electronically approved by: Jim Martinez M.D. on 11/12/2017 at 8:49
[2017-11-12] MEDS: RIVAROXABAN 15 MG TABLET PO SCH ×2 (09:00→17:00)
[2017-11-12] MEDS: METHADONE PO SCH (09:00)
[2017-11-12] MEDS: IRON SUCROSE 200 MG in SODIUM CHLORIDE 0.9% 100 ML 100 ML IV SCH (09:00)
[2017-11-12] MEDS: IRON-VITAMIN-MINERAL CAPSULE PO SCH ×2 (09:09→17:15)
[2017-11-12] MEDS: SERTRALINE HCL 50 MG TAB PO SCH (09:09)
[2017-11-12] MEDS: SUCRALFATE 1 GM TAB PO SCH ×4 (09:09→20:38)
[2017-11-12] MEDS: CYANOCOBALAMIN INJ 1,000 MCG/ML VIAL IM SCH (09:09)
[2017-11-12] MEDS ORDERED: SODIUM CHLORIDE 0.9% 50ML 50 ML ONE (09:59)
[2017-11-12] MEDS ORDERED: IOPAMIDOL 370 MG/ML 200 ML INFUS..BTL INJ ONE (10:03)
--- NOTE | 2017-11-12 16:40 | Progress Note ---
DATE: INTERNAL MEDICINE PROGRESS NOTE SUBJECTIVE: Patient is doing better, eating better today. Afebrile. PHYSICAL EXAMINATION VITAL SIGNS: Blood pressure 149/77. Temperature 96.9. Heart rate 89 per minute. Respiratory rate 19 per minute. Oxygen saturation 98%. HEART: Regular rhythm. Normal S1, S2 sounds. LUNGS: Clear bilaterally. ABDOMEN: Soft. BLOOD WORK: We have BMP with sodium 138, potassium 3.6, chloride 105, CO2 27, BUN 8, creatinine 0.64, glucose 101. CBC: White blood count 6.09, hemoglobin 9.5, hematocrit 30.2, platelet count 203,000. PT 14.6, PTT 48.7, INR 1.23. AST 12, ALT 6, total bilirubin 0.3, alkaline phosphatase 156. The abdominal drain is still draining some fluid, so we are going to continue with the antibiotics and the drain tube until the fluid is completely gone for 24 hours, then we will discontinue that. Continue with the current medication regimen, which includes: 1. Metronidazole 500 mg IV q.6 h. 2. Protonix 40 mg daily. 3. Zoloft 150 mg daily. 4. Levothyroxine 75 mcg daily. 5. Discontinue Lovenox. 6. Discontinue Xarelto. 7. Continue Ambien 10 mg at night p.r.n. for sleep. 8. Continue Phenergan 12.5 mg IV q.6 h. as needed for vomiting. 9. Multicomplex of ferrous fumarate, folic acid, and B complex 1 tablet twice a day. 10. Soldier 1 tablet q.4 h. as needed. Job#: [id number]
[2017-11-12] MEDS: ENOXAPARIN SOD INJ 40 MG/0.4 ML SYR SC SCH (17:15)
[2017-11-12] MEDS: ZOLPIDEM TARTRATE 10 MG TAB PO PRN (23:29)
[2017-11-13] VITALS (8 sets, daily range): BP systolic 140–171; BP diastolic 69–104
[2017-11-13] MEDS: PROMETHAZINE 12.5MG/ NACL 0.9% 12.5 MG/50 ML BAG IV PRN ×3 (02:30→16:11)
[2017-11-13] MEDS: PANTOPRAZOL 40MG/SOD CHL 0.9% 50 ML IV SCH ×3 (02:30→16:09)
[2017-11-13] MEDS: METRONIDAZOLE 500MG/NS 100ML 100 ML IV SCH ×3 (05:26→17:08)
[2017-11-13] MEDS: HYDROCODONE/APAP 5MG-325MG TAB PO PRN ×3 (05:27→13:36)
[2017-11-13] MEDS: LEVOTHYROXINE SODIUM 75 MCG TAB PO SCH (05:27)
[2017-11-13] MEDS: IRON-VITAMIN-MINERAL CAPSULE PO SCH ×2 (08:52→09:10)
[2017-11-13] MEDS: SUCRALFATE 1 GM TAB PO SCH ×4 (08:52→19:56)
[2017-11-13] MEDS: METHADONE PO SCH (08:52)
[2017-11-13] MEDS: CYANOCOBALAMIN INJ 1,000 MCG/ML VIAL IM SCH (08:52)
[2017-11-13] MEDS: SERTRALINE HCL 50 MG TAB PO SCH (08:52)
[2017-11-13] MEDS ORDERED: SODIUM CHLORIDE 0.9% 500ML 500 ML ONE (09:29)
[2017-11-13] MEDS: IRON SUCROSE 200 MG in SODIUM CHLORIDE 0.9% 100 ML 100 ML IV SCH (09:35)
[2017-11-13] MEDS ORDERED: SODIUM CHLORIDE 0.9% 50ML 50 ML ONE (11:54)
[2017-11-13] MEDS: PIPER-TAZ 3.375 GM 50 ML IV SCH (18:42)
[2017-11-13] MEDS: METHADONE HCL 10 MG TAB PO SCH (19:56)
[2017-11-14] VITALS: BP 157/101
[2017-11-14] MEDS: PIPER-TAZ 3.375 GM 50 ML IV SCH ×4 (00:37→16:46)
[2017-11-14] MEDS: ZOLPIDEM TARTRATE 10 MG TAB PO PRN ×2 (00:49→21:25)
[2017-11-14] MEDS: METRONIDAZOLE 500MG/NS 100ML 100 ML IV SCH ×3 (00:55→11:07)
[2017-11-14] MEDS: ONDANSETRON HCL INJ 2 MG/ML VIAL IV PRN (01:42)
[2017-11-14] MEDS: PROMETHAZINE 12.5MG/ NACL 0.9% 12.5 MG/50 ML BAG IV PRN ×4 (02:10→21:25)
[2017-11-14 04:00] VITALS: BP 120/75
[2017-11-14] MEDS: LEVOTHYROXINE SODIUM 75 MCG TAB PO SCH (05:45)
[2017-11-14] MEDS: IRON-VITAMIN-MINERAL CAPSULE PO SCH ×2 (07:53→10:38)
[2017-11-14 08:00] VITALS: BP 129/76
[2017-11-14] MEDS: PANTOPRAZOLE SOD 40 MG TABEC PO SCH (08:00)
[2017-11-14] MEDS: CYANOCOBALAMIN INJ 1,000 MCG/ML VIAL IM SCH (08:00)
[2017-11-14] MEDS: SUCRALFATE 1 GM TAB PO SCH ×4 (08:00→20:55)
[2017-11-14] MEDS: SERTRALINE HCL 50 MG TAB PO SCH (08:01)
[2017-11-14] MEDS: METHADONE HCL 10 MG TAB PO SCH ×2 (08:01→20:55)
[2017-11-14] MEDS: IRON SUCROSE 200 MG in SODIUM CHLORIDE 0.9% 100 ML 100 ML IV SCH (09:00)
[2017-11-14 12:00] VITALS: BP 134/71
[2017-11-14 16:00] VITALS: BP 160/95
--- NOTE | 2017-11-14 16:17 | Progress Note ---
DATE: November 14, 2017 INTERNAL MEDICINE PROGRESS NOTE SUBJECTIVE: She is doing well. No significant complaint. PHYSICAL EXAM: VITAL SIGNS: Blood pressure 134 71. Temperature is 97.0, heart rate 95 per minute. Respiratory rate 18 per minute. Oxygen saturation 97%. HEART: Regular rhythm. No murmur. No extra sounds. LUNGS: Clear bilaterally. ABDOMEN: Soft. Has a drain in place. EXTREMITIES: Show no evidence of cyanosis, edema or trauma. BLOOD WORK: Sodium 138, potassium 3.6, chloride 105, CO2 27. BUN 8, creatinine 0.64, glucose 101. CBC showed white blood count 6.09, hemoglobin 9.5, hematocrit 30.2, platelet count 203,000. PT 14.6. INR 123. PTT 48.7. AST 12, ALT 6, total bilirubin 0.3, alkaline phosphatase 156. FINAL IMPRESSION: 1. Intra-abdominal abscess which is completely resolved radiologically by the CAT scan. 2. Anemia of chronic disease with guaiac positive stools. 3. Hepatitis C. 4. Liver lesions secondary to a small abscess which are significantly improved from before. PLAN OF TREATMENT: Continue with Zosyn 3.375 grams IV piggyback q.6 hour, metronidazole 500 mg IV q.6 hours. Zoloft 150 mg daily. Vitamin 12 1,000 mcg daily. Methadone 20 mg twice a day. Sumatriptan 50 mg daily as needed for headache. Continue multivitamin one tablet twice a day. Protonix 40 mg daily. Levothyroxine 75 mcg daily. Carafate 1 gram before meals. Zofran 4 mg q.4 h. as needed. Promethazine 12.5 mg IV q.6 h. as needed. Discharge summary. Invasive radiology will remove the drain from the abdomen since there is absolutely no evidence of any intra-abdominal fluid collection in abdominal CT done, the last one we did. Patient will continue with Levaquin for a few more days as an outpatient. She is going to follow up with public information officer and primary care physician at [facility]. We are holding any anticoagulation due to the fact that the patient required blood transfusion as she had guaiac positive stools. Prior EGD done at [facility] showed a nonbleeding gastric ulcer. Job#: [id number]
[2017-11-14 20:23] VITALS: BP 154/94
[2017-11-15] VITALS: BP 144/93
[2017-11-15] MEDS: PIPER-TAZ 3.375 GM 50 ML IV SCH ×3 (00:45→12:59)
[2017-11-15] MEDS: PROMETHAZINE 12.5MG/ NACL 0.9% 12.5 MG/50 ML BAG IV PRN ×2 (05:47→11:37)
[2017-11-15] MEDS: LEVOTHYROXINE SODIUM 75 MCG TAB PO SCH (05:47)
[2017-11-15] MEDS: PANTOPRAZOLE SOD 40 MG TABEC PO SCH (07:30)
[2017-11-15] MEDS: SUCRALFATE 1 GM TAB PO SCH ×2 (07:30→11:30)
[2017-11-15 07:59] VITALS: BP 130/87
[2017-11-15] MEDS: CYANOCOBALAMIN INJ 1,000 MCG/ML VIAL IM SCH (11:11)
[2017-11-15] MEDS: IRON-VITAMIN-MINERAL CAPSULE PO SCH (11:11)
[2017-11-15] MEDS: METHADONE HCL 10 MG TAB PO SCH (11:11)
[2017-11-15] MEDS: SERTRALINE HCL 50 MG TAB PO SCH (11:12)
[2017-11-15 12:00] VITALS: BP 161/94
[2017-11-15] MEDS ORDERED: LEVAQUIN500 MG PO (12:02)
== END 2017-11-15 14:28 | disposition short-term general hospital (02) | DRG 371 ==
LOC: ER 20:20 → ERHOLD 11-02 02:31 → MED/SURG2 11-02 15:15
PROVIDERS: ADMIT Internal Medicine; ATTEND Internal Medicine
PROC: 0W9G30Z Drainage of Peritoneal Cavity with Drainage Device, Percutaneous Approach (ICD-10-PCS; principal; 2017-11-02)
PROC: 02HV33Z Insertion of Infusion Device into Superior Vena Cava, Percutaneous Approach (ICD-10-PCS; 2017-11-04)
PROC: 30243N1 Transfusion of Nonautologous Red Blood Cells into Central Vein, Percutaneous Approach (ICD-10-PCS; 2017-11-04)
DX: K65.1 Peritoneal abscess (principal); K75.0 Abscess of liver; I74.8 Embolism and thrombosis of other arteries; K86.1 Other chronic pancreatitis; I72.8 Aneurysm of other specified arteries; D62 Acute posthemorrhagic anemia; Q45.0 Agenesis, aplasia and hypoplasia of pancreas; K92.1 Melena; B96.1 Klebsiella pneumoniae [K. pneumoniae] as the cause of diseases classified elsewhere; D50.9 Iron deficiency anemia, unspecified; E83.42 Hypomagnesemia; E88.09 Other disorders of plasma-protein metabolism, not elsewhere classified; R77.1 Abnormality of globulin; Z68.31 Body mass index [BMI] 31.0-31.9, adult; G89.4 Chronic pain syndrome; E66.9 Obesity, unspecified; D63.8 Anemia in other chronic diseases classified elsewhere; E03.9 Hypothyroidism, unspecified; Z79.52 Long term (current) use of systemic steroids; B95.4 Other streptococcus as the cause of diseases classified elsewhere; Z87.11 Personal history of peptic ulcer disease; Z86.718 Personal history of other venous thrombosis and embolism; Z86.19 Personal history of other infectious and parasitic diseases; Z79.01 Long term (current) use of anticoagulants
CPT/HCPCS: 36415; 36569; 49406; 71045; 74177; 74470; 80048; 80053; 82150; 82270; 82550; 82553; 82607; 82728; 82746; 82784; 82948; 83540; 83690; 83735; 84165; 84466; 84484; 84702; 85025; 85045; 85610; 85730; 86850; 86900; 86920; 87070; 87205; 87536; 93005; 93970; 96360; 96361; 96365; 96366; 96367; 96374; 99284; J1170; J1650; J1756; J2250; J2270; J2405; J2543; J2550; J3420; J3480; J7030; J7040; J7050; P9016; Q9967

== ENCOUNTER 2020-12-05 22:09 | Emergency (ER) | payer SELFPAY ==
[~2020-12-05] VITALS: Ht 170.2 cm; Wt 90.7 kg
[~2020-12-05 22:09] MED LIST changes: +AMBIEN CR12.5 MG PO; +IMITREX25 MG PO; +LEVAQUIN500 MG PO; +LEVOTHYROXINE75 MCG PO; +METHADONE PO; +XARELTO20 MG PO; +ZOLOFT50 MG PO
[2020-12-05] MEDS ORDERED: SODIUM CHLORIDE 0.9% 1000ML 1,000 ML IV STA (22:11)
[2020-12-05 22:40] LABS: BASOPHILS % 0.6 % (0.0-1.0); EOSINOPHILS # (AUTO) 0.1 (0.0-0.4); EOSINOPHILS % 1.5 % (0.0-6.0); HEMATOCRIT 40.2 % (34.2-44.1); HEMOGLOBIN 14.1 g/dL (12.0-16.0); LYMPHOCYTES # (AUTO) 2.2 (1.0-3.2); LYMPHOCYTES % 31.6 % (18.0-39.1); MEAN CORPUSCULAR HEMOGLOBIN 27.9 pg (28-32); MEAN CORPUSCULAR HGB CONC 35.1 g/dL (31-35); MEAN CORPUSCULAR VOLUME 79.4 fL (81-99); MONOCYTES # (AUTO) 0.4 (0.2-0.8); MONOCYTES % 5.9 % (4.4-11.3); NEUTROPHILS # (AUTO) 4.1 (2.1-6.9); NEUTROPHILS % 60.1 % (38.7-80.0); PLATELET COUNT 201 x10e3/uL (140-360); RED BLOOD COUNT 5.06 x10e6/uL (3.6-5.1)
[2020-12-05 23:00] LABS: ALBUMIN 4.1 g/dL (3.5-5.0); ALBUMIN/GLOBULIN RATIO 1.1 (0.8-2.0); ANION GAP 16.8 mmol/L (8-16); CALCIUM 9.3 mg/dL (8.4-10.2); CREATININE, SERUM 1.03 mg/dL (0.57-1.11); POTASSIUM 3.8 mmol/L (3.5-5.1)
[2020-12-05 23:01] LABS: CLARITY,URINE CLEAR (CLEAR); COLOR,URINE YELLOW (YELLOW); KETONES,URINE NEGATIVE (NEGATIVE); LEUKOCYTE ESTERASE ,URINE NEGATIVE (NEGATIVE); NITRITE,URINE NEGATIVE (NEGATIVE); PROTEIN,URINE DIPSTICK NEGATIVE (NEGATIVE); URINE UROBILINOGEN 0.2 mg/dL (0.2 - 1)
[2020-12-05 23:07] LABS: CREATINE KINASE MB 0.6 ng/mL (0-5.0)
[2020-12-05 23:11] LABS: BACTERIA,URINE RARE /HPF; EPITHELIAL CELLS,URINE FEW /LPF; RBC,URINE 0-5 /HPF (0-5); WBC,URINE (MAN) 0-5 /HPF (0-5)
[2020-12-05] MEDS ORDERED: MORPHINE SULFATE INJ 4 MG/ML INJ 1ML IV STA (23:14)
[2020-12-05] MEDS ORDERED: INSULIN REGULAR, HUMAN 100 UNIT/1 ML 3ML VIAL IV STA (23:33)
[2020-12-06 00:06] LABS: ABG HCO3 30 mmol/L (22-26); ABG PCO2 42 mmHg (35-45); ABG PH 7.41 (7.35-7.45); ABG PO2 60 mmHg (80-105); ABG TCO2 32
[2020-12-06 05:54] VITALS: BP 152/94
== END 2020-12-06 01:42 | disposition home or self-care (01) ==
LOC: ER 22:16
DX: R73.9 Hyperglycemia, unspecified (principal); R53.1 Weakness; B19.20 Unspecified viral hepatitis C without hepatic coma; Z87.19 Personal history of other diseases of the digestive system
CPT/HCPCS: 36415; 71045; 80053; 81001; 81025; 82550; 82553; 82805; 82948; 83690; 83880; 84484; 85025; 93005; 99283; J7030; J1817